=== PATIENT | female | born 1975 | race Caucasian/White ===

== ENCOUNTER 2018-06-30 06:49 | Day surgery (SDC) | payer OTHER ==
[~2018-06-30 06:49] MED LIST: Buffered Lidocaine 1% SYRIN* 1 ML/SYRINGE INTRADERM ONE; Dexamethasone TAB* 4 MG PO ONE; DiMENhydriNATE IV* 50 MG/ML VIAL IV PUSH PRN; Famotidine IV* 10 MG/ML 2 ML (20 mg) IV ONE; Lactated Ringers 1000 ML Bag* 1,000 ML IV SCH; Morphine 4 MG/ML VIAL (1 ml) 4 MG/ML VIAL IV PRN; Naloxone* 0.4 MG/ML 1 ML VIAL IV PRN; Ondansetron TAB* 4 MG PO ONE; PROCHLORPERAZINE INJ 5 MG/ML 2 ML VIAL IV PRN; Scopolamine 1.5 mg* PATCH TRANSDERM PRN; fentaNYL* 50 MCG/ML 2 ML VIAL (100 MCG VIAL) IV PRN; oxyCODONE/Acetamin 5/325 MG* TAB PO PRN
[2018-06-30] MEDS ORDERED: Ondansetron ODT TAB* 4 MG ONE (07:18)
[2018-06-30] MEDS ORDERED: Dexamethasone TAB* 4 MG ONE (07:18)
[2018-06-30] MEDS ORDERED: Buffered Lidocaine 1% SYRIN* 1 ML/SYRINGE INTRADERM ONE (07:18)
[2018-06-30] MEDS ORDERED: Famotidine IV* 10 MG/ML 2 ML (20 mg) ONE (07:18)
[2018-06-30 08:00] LABS: Hematocrit 42 % (35-47); Hemoglobin 14.1 g/dL (12.0-16.0); Mean Corpuscular HGB Conc 34 g/dL (31-36); Mean Corpuscular Hemoglobin 29 pg (27-31); Mean Corpuscular Volume 87 fL (80-97); Mean Platelet Volume 7.1 fL (7.4-10.4); Platelet Count 207 10^3/uL (150-450); Red Blood Count 4.81 10^6 /uL (3.70-4.87); Red Cell Distribution Width 14 % (10.5-15); White Blood Count 7.7 10^3/uL (3.5-10.8)
[2018-06-30] MEDS ORDERED: Acetaminophen TAB* 325 MG PO ONE (08:37)
[2018-06-30] MEDS ORDERED: Midazolam* 1 MG/ML 5 ML VIAL (5 MG) ONE (08:52)
[2018-06-30] MEDS ORDERED: fentaNYL* 50 MCG/ML 2 ML VIAL (100 MCG VIAL) ONE (09:28)
[2018-06-30] MEDS ORDERED: Chloroprocaine 2%* 20 ML VIAL ONE (09:33)
[2018-06-30] MEDS ORDERED: Propofol* 10 MG/ML 20 ML BTL ONE (09:33)
[2018-06-30] MEDS ORDERED: Lidocaine 2% PF * 5 ML VIAL ONE (09:33)
[2018-06-30] MEDS ORDERED: DiMENhydriNATE IV* 50 MG/ML VIAL ONE (09:41)
[2018-06-30] MEDS ORDERED: Acetaminophen TAB* 325 MG ONE (11:53)
[2018-06-30] MEDS ORDERED: Scopolamine 1.5 mg* PATCH ONE (12:04)
[2018-06-30 12:25] VITALS: BP 148/76
[2018-07-03] MEDS ORDERED: Scopolamine PATCH Remove* 1 NOTE MISC PATCH OFF ONE (05:55)
--- NOTE | 2018-07-05 23:12 | OP ---
CC: [facility] * DATE OF OPERATION: 06/30/18 - [facility] DATE OF : 77 SURGEON: Jessica Irizarry MD SOFTWARE QUALITY ANALYST: Willa Good NP ANESTHESIOLOGIST: Dr. Horne. ANESTHESIA: Spinal. PRE-OP DIAGNOSES: Menorrhagia, endometrial mass on sonogram, stenotic cervix. POST-OP DIAGNOSES: Menorrhagia, endometrial mass on sonogram, stenotic cervix. OPERATIVE PROCEDURE: Dilation hysteroscopy, MyoSure, and curettage. ESTIMATED BLOOD LOSS: Minimal, less than 20 cc. SPECIMENS: What appeared to be an endometrial polyp and endometrial curetting. FLUIDS: Per Anesthesia. DEFICIT: Less than 300 cc. DRAINS: None. FINDINGS: Small anteverted uterus, midline cervix, multiple areas that appeared like endometrial polyps at the fundus of the uterus and fluffy endometrium throughout. No adnexal masses were palpated. The uterus sounded to 7. COUNTS: Sponge counts were correct x2. CONDITION: The patient tolerated the procedure well and was brought to recovery room awake and in stable condition. DESCRIPTION OF PROCEDURE: The patient was brought to the operating room. When spinal anesthesia was found to be adequate, the patient was prepped and draped in the usual sterile fashion in the dorsal lithotomy position. Time-out was performed. Exam under anesthesia was performed. The weighted speculum was placed in the vagina. The anterior lip of the cervix was grasped with a single- tooth tenaculum and the cervix was gently and easily dilated with graduated Piper dilators. Uterus sounded to 7. The hysteroscope was introduced with the above findings noted. A MyoSure was used to remove the polypoid-appearing tissue. The curettage was then performed. Endometrial curettings were also sent to Pathology. The single-tooth tenaculum was removed from the cervix. Excellent hemostasis was noted. All instruments were removed from the vagina. Sponge count was correct x2 and the patient was brought to the recovery room awake and in stable condition. [id number] #: [id number] MTDD
== END 2018-06-30 12:27 | disposition home or self-care (01) ==
LOC: OR 06:49
PROVIDERS: ATTEND Obstetrics & Gynecology
DX: N92.0 Excessive and frequent menstruation with regular cycle (principal); N84.0 Polyp of corpus uteri; I10 Essential (primary) hypertension
CPT/HCPCS: 36415; 81025; 85027; 86850; 86900; 86901; 88305; A9270-GY; J1240; J2250; J2400; J2704; J3010; J8540